=== PATIENT | male | born 1995 | race Caucasian/White ===

== ENCOUNTER 2020-05-02 17:15 | Emergency (ER) | payer OTHER, SELFPAY ==
--- NOTE | ~2020-05-02 | CT_ITS ---
EXAMINATION: CT brain wo con EXAM DATE: 05/02/2020 22:59 INDICATION: Pseudoseizure. TECHNIQUE: Spiral CT of the head was performed without contrast. Axial, coronal and sagittal images were reviewed. The dose-length product (DLP) for this examination was 681.00 mGy-cm. The exposure w as tailored according to patient size, and iterative reconstruction (ASIR) was used as additional dos e reduction technique. There is no prior study for comparison. FINDINGS: There is no acute intraparenchymal hemorrhage. No evidence of intraparenchymal brain mass lesion. No evidence of acute infarction. There is no mass effect or midline shift. The ventricles are normal in size. There are no extra-axial collections. There are no acute calvarial fractures. T he orbits are unremarkable. Soft tissue is unremarkable. The visualized sinuses and mastoid air thalia ls are well aerated. IMPRESSION: 1. Normal head CT examination. Reviewed, dictated and finalized at location A.
[2020-05-02 17:22] VITALS: BP 145/106; PULSE 116; RESP 18; TEMP 36.7; O2SAT 98
--- NOTE | 2020-05-02 19:56 | PC.NURSE ---
patient reports a hx of bipolar disorder with a previous hospitalization for a manic phases. patient reports that he stopped taking his medications because he doesnt like the the way they make him feel. presents to the er stating that he feels like he is going into a manic phase again. reports not sleeping well, increased energy level and not eating well. patient states he needs some help . denies SI or HI. patients thought process disorganized and difficult to follow
[2020-05-02 20:01] LABS: Basophils Absolute Auto 0.1 K/mm3 (0.0-0.1); Basophils Percent Auto 0.7 % (0.2-1.2); Eosinophils Percent Auto 0.5 % (0-4.4); Hematocrit 48.9 % (42.0-52.0); Hemoglobin 16.8 g/dL (14.0-18.0); Immature Granulocyte Absolute 0.01 K/mm3 (0.00-0.031); Immature Granulocyte Percent A 0.1 % (0-0.5); Lymphocytes Absolute Auto 1.85 K/mm3 (0.9-3.2); Lymphocytes Percent Auto 24.7 % (18.3-44.2); Mean Corpuscular HGB Conc 34.4 g/dl (32-36); Mean Corpuscular Hemoglobin 30.3 pg (26-34); Mean Corpuscular Volume 88.1 fl (80-100); Mean Platelet Volume 10.1 fl (7.4-10.4); Monocytes Absolute Auto 0.7 K/mm3 (0.1-0.6); Monocytes Percent Auto 8.8 % (2.6-8.5); Neutrophils Absolute Auto 4.9 K/mm3 (1.3-6.7); Neutrophils Percent Auto 65.2 % (45.5-73.1); Platelet Count Result 207 k/mm3 (150-375); Red Blood Count 5.55 M/mm3 (4.6-6.20); Red Cell Distribution Width 12.2 % (11.5-14.5); White Blood Count 7.5 K/mm3 (4.5-10.0)
--- NOTE | 2020-05-02 20:09 | ED.PSYCH ---
HPI - Psych General Chief Complaint: Psychiatric Symptoms <Mariela Hewitt MD - Last Filed: 05/04/20 12:27> Stated Complaint: psych eval? <Mariela Hewitt MD - Last Filed: 05/04/20 12:27> Time Seen by Provider: 05/02/20 19:58 <Mariela Hewitt MD - Last Filed: 05/04/20 12:27> History of Present Illness HPI Narrative: Patient presents to the ED for psychiatric care. He has difficulty answering questions, difficulty formulating his thoughts, and is very slow of speech. He starts by telling me that he was diagnosed bipolar. And that his thoughts are bothering him. He cannot describe the thoughts. He says he has suicidal ideation, but no plan. He has no homicidal ideation and does not want to hurt anybody. At first he says he wants outpatient care, and that he changes his mind and said he needs to be inpatient. He denies recent illness. He denies any surgeries. He finished 2 years of high school. He did not get his GED and has no college. 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 He lives with his parents. <Mariela Hewitt MD - Last Filed: 05/04/20 12:27> MD complaint: suicidal ideation and feels depressed <Mariela Hewitt MD - Last Filed: 05/04/20 12:27> Duration: constant <Mariela Hewitt MD - Last Filed: 05/04/20 12:27> Relieving factors: none <Mariela Hewitt MD - Last Filed: 05/04/20 12:27> Exacerbating factors: none <Mariela Hewitt MD - Last Filed: 05/04/20 12:27> Context: significant life stressor <Mariela Hewitt MD - Last Filed: 05/04/20 12:27> Associated psychiatric symptoms: depression, suicidal ideation and other (Troublesome thoughts) <Mariela Hewitt MD - Last Filed: 05/04/20 12:27> Associated symptoms: denies other symptoms <Mariela Hewitt MD - Last Filed: 05/04/20 12:27> If self harm: admits thoughts of self harm <Mariela Hewitt MD - Last Filed: 05/04/20 12:27> Related Data Home Medications: Home Medications Medication Instructions Recorded Confirmed No Home Medications 05/02/20 05/02/20 <Mariela Hewitt MD - Last Filed: 05/04/20 12:27> Allergies/Adverse Reactions: Allergies Allergy/AdvReac Type Severity Reaction Status Date / Time No Known Drug Allergies Allergy Unknown Unknown Verified 05/03/20 07:11 <Mariela Hewitt MD - Last Filed: 05/04/20 12:27> Review of Systems Review of Systems: Narrative: CONSTITUTIONAL: Denies fever, chills, or sweats. EYES: Denies visual changes, redness, or discharge. ENT: Denies rhinorrhea, congestion, sore throat, or otalgia. CARDIOVASCULAR: Denies chest pain, palpitations, or edema. RESPIRATORY: Denies cough or dyspnea. GASTROINTESTINAL: Denies abdominal pain, nausea, vomiting, or diarrhea. GENITOURINARY: Denies dysuria or hematuria. SKIN: Denies rash or itching. MUSCULOSKELETAL: Denies back pain, joint pain, or myalgia. NEUROLOGIC: Denies headache, numbness, or weakness. PSYCHIATRIC: History of bipolar. <Mariela Hewitt MD - Last Filed: 05/04/20 12:27> All systems reviewed & are unremarkable except as noted in HPI and below <Mariela Hewitt MD - Last Filed: 05/04/20 12:27> PMFSH Past Medical History Medical History: Medical History Depression School failure <Mariela Hewitt MD - Last Filed: 05/04/20 12:27> Surgical History Surgical History: Surgical History (Updated 05/02/20 @ 20:13 by Mariela Hewitt MD) No pertinent past surgical history <Mariela Hewitt MD - Last Filed: 05/04/20 12:27> Social History Social History: Social History (Updated 05/02/20 @ 20:13 by Mariela Hewitt MD) Smoking status: Former smoker Alcohol intake: former Substance use: never <Mariela Hewitt MD - Last Filed: 05/04/20 12:27> Exam Narrative: Exam Narrative: GENERAL: Well-appearing, well-nourished, and in no acute distress. HEAD: Normocephalic, atraumatic. EYES: PERRLA and EOMI. ENT: Nares clear, no rhinorrhea or epistaxis. Mucous membranes moist.
[2020-05-02 20:12] LABS: Ethanol < 10 mg/dL (<10)
[2020-05-02 20:13] LABS: Alanine Aminotransferase 18 U/L (4-50); Albumin Level 5.2 g/dL (3.5-5.1); Alkaline Phosphatase 85 U/L (38-126); Aspartate Amino Transferase 36 U/L (17-59); Bilirubin,Total 0.9 mg/dL (0.2-1.3); Blood Urea Nitrogen 8 mg/dL (9-20); Calcium 9.6 mg/dL (8.4-10.2); Carbon Dioxide 26 mmol/L (22-30); Chloride 99 mmol/L (98-107); Estimated CRCL calculation 127 ml/min; Estimated Glomerular Filt Rate > 60; Glucose 88 mg/dL (75-110); Sodium 137 mmol/L (137-145)
[2020-05-02 20:59] VITALS: BP 138/78; PULSE 87; RESP 20; O2SAT 99
[2020-05-02 21:07] LABS: Add Urine Microscopic? YES; Appearance Urine Clear (Clear); Bacteria Urine Trace /hpf; Bilirubin Urine Negative (Negative); Blood Urine Negative (Negative); Color Urine Yellow (Yellow); Glucose Urine UA Negative (Negative); Ketones Urine 1+ mg/dL (Negative); Leukocyte Esterase Ur Negative LEU/UL (Negative); Mucus Urine Heavy /lpf; Nitrate Urine Negative (Negative); Protein Urine 1+ mg/dL (Negative); RBC Urine 0-2 /hpf (0-2); Specific Grav Ur 1.024 (1.001-1.035); Squamous Epithelial Cell Urine Rare /hpf (Few); Urobilinogen Urine Negative mg/dL (<2.0); WBC Urine 0-3 /hpf
[2020-05-02 21:18] LABS: Amphetamine Screen Urine Negative (Negative); Barbiturate Screen Urine Negative (Negative); Benzodiazepines Screen Urine Negative (Negative); Cannabinoid Screen Urine Negative (Negative); Cocaine Screen Urine Negative (Negative); Methadone Screen Urine Negative (Negative); Opiate Screen Urine Negative (Negative); Phencyclidine Screen Urine Negative (Negative)
--- NOTE | 2020-05-02 21:26 | PC.NURSE ---
message left at [facility]
[2020-05-02 21:58] VITALS: BP 176/107; PULSE 115; RESP 20; O2SAT 99
--- NOTE | 2020-05-02 21:58 | PC.NURSE ---
Patient now has a sitter at bedside after having a Pseudoseizure that Dr. Hewitt witnessed.
--- NOTE | 2020-05-02 22:02 | PC.NURSE ---
patient found in bed having tonic/clonic like movements. erp call to bedside. no orders recieved. erp declines iv access attempt
--- NOTE | 2020-05-03 00:01 | PC.NURSE ---
pt mother called for an update. pt states it is ok to talk with her. told her we would call her back when we had more information.
--- NOTE | 2020-05-03 00:02 | PC.NURSE ---
mother Brandie [phone]
[2020-05-03 00:19] VITALS: BP 132/80; PULSE 79; RESP 20; TEMP 36.9; O2SAT 100
--- NOTE | 2020-05-03 00:41 | PC.NURSE ---
called mom to give her update, pt will be staying here until atleast tomorrow. per crisis there are no available beds.
--- NOTE | 2020-05-03 04:26 | PC.NURSE ---
pt continues to sleep on stretcher at this time. pt in NAD, RR even and unlabored. sitter remains at bedside.
[2020-05-03 05:55] VITALS: BP 147/101; PULSE 101; RESP 18; O2SAT 95
[2020-05-03] MEDS: HALOPERIDOL 1 MG TABLET PO (06:43)
--- NOTE | 2020-05-03 09:47 | PC.NURSE ---
CHART FAXED TO [facility].
--- NOTE | 2020-05-03 09:51 | PC.NURSE ---
CHART FAXED TO [facility] IN [place].
--- NOTE | 2020-05-03 10:32 | PC.NURSE ---
[facility] UNABLE TO ACCEPT PT AT THIS TIME DUE TO SELF PAY STATUS.
[2020-05-03 12:17] VITALS: BP 151/89; PULSE 86; RESP 20; O2SAT 99
[2020-05-03 14:25] LABS: SARS-CoV-2 RNA PCR Negative
[2020-05-03 15:00] VITALS: BP 138/88; PULSE 80; RESP 20; O2SAT 98
--- NOTE | 2020-05-03 20:26 | PC.NURSE ---
1600 pt denied by [facility] 1999 pt denied by [facility] [address] [facility] in [place]
[2020-05-03 22:56] VITALS: BP 142/90; PULSE 82; RESP 20; O2SAT 97
[2020-05-04 06:06] VITALS: BP 133/92; PULSE 70; RESP 16; TEMP 36.8; O2SAT 100
--- NOTE | 2020-05-04 06:21 | PC.NURSE ---
0555Luis Vick from [place], [place]- she is requesting a petition & certificate on this patient to be sent to her, even though this patient is voluntary. She states she needs this paperwork prior to looking at the rest of the patients information. I called Crisis, awaiting for a [employer] liqu[employer] sales representative to call back regarding this paperwork. Nava- [phone] [phone]
--- NOTE | 2020-05-04 08:00 | PC.NURSE ---
[facility]risis Returned Call: Will attempt to find placement at local facilities today prior to making patient sign any petition.
--- NOTE | 2020-05-04 10:05 | PC.NURSE ---
Crisis called, will be out for reevaluation of patient within the hour.
--- NOTE | 2020-05-04 10:47 | PC.NURSE ---
Faxed [facility] Petition for Involuntary Admission and Certificate. Crisis at bedside for petition signature.
[2020-05-04 11:00] VITALS: BP 168/110; PULSE 115; RESP 20; O2SAT 96
--- NOTE | 2020-05-04 11:59 | PC.NURSE ---
Spoke Fang at Crisis and faxed pts packet to [facility] in [place]
--- NOTE | 2020-05-04 14:23 | PC.NURSE ---
Spoke with intake at [facility] and she asked that we repeat lab work and fax it to them since it was last done on 05/02. notified.
[2020-05-04 14:54] LABS: Basophils Percent Auto 0.6 % (0.2-1.2); Eosinophils Percent Auto 0.3 % (0-4.4); Hematocrit 46.8 % (42.0-52.0); Hemoglobin 16.2 g/dL (14.0-18.0); Immature Granulocyte Absolute 0.03 K/mm3 (0.00-0.031); Immature Granulocyte Percent A 0.5 % (0-0.5); Lymphocytes Absolute Auto 1.37 K/mm3 (0.9-3.2); Lymphocytes Percent Auto 21.7 % (18.3-44.2); Mean Corpuscular HGB Conc 34.6 g/dl (32-36); Mean Corpuscular Hemoglobin 30.2 pg (26-34); Mean Corpuscular Volume 87.2 fl (80-100); Mean Platelet Volume 10.4 fl (7.4-10.4); Monocytes Absolute Auto 0.5 K/mm3 (0.1-0.6); Monocytes Percent Auto 8.4 % (2.6-8.5); Neutrophils Absolute Auto 4.3 K/mm3 (1.3-6.7); Neutrophils Percent Auto 68.5 % (45.5-73.1); Platelet Count Result 197 k/mm3 (150-375); Red Blood Count 5.37 M/mm3 (4.6-6.20); Red Cell Distribution Width 12.1 % (11.5-14.5); White Blood Count 6.3 K/mm3 (4.5-10.0)
[2020-05-04 15:01] LABS: Alanine Aminotransferase 14 U/L (4-50); Alkaline Phosphatase 70 U/L (38-126); Anion Gap 15.7 mmol/L (7-16); Aspartate Amino Transferase 27 U/L (17-59); Bilirubin,Total 1.2 mg/dL (0.2-1.3); Blood Urea Nitrogen 10 mg/dL (9-20); Calcium 9.4 mg/dL (8.4-10.2); Carbon Dioxide 28 mmol/L (22-30); Chloride 98 mmol/L (98-107); Estimated CRCL calculation 127 ml/min; Estimated Glomerular Filt Rate > 60; Glucose 87 mg/dL (75-110); Potassium 4.7 mmol/L (3.4-5.0); Sodium 137 mmol/L (137-145)
--- NOTE | 2020-05-04 17:08 | PC.NURSE ---
Spoke with Nato at [facility] and sent him pts updated labwork.
--- NOTE | 2020-05-04 17:47 | PC.NURSE ---
Spoke with Nato at [facility] and re-faxed pts involuntary petition. Nato states he will call back soon with placement confirmation.
[2020-05-04 18:00] VITALS: BP 141/88; PULSE 84; RESP 18; TEMP 37.1; O2SAT 100
--- NOTE | 2020-05-04 18:00 | PC.NURSE ---
Pt accepted to [facility]. Report called to ROSEANN Anglin. Dr Barnett is accepting physician.
[2020-05-04 18:03] VITALS: BP 141/88; PULSE 84; RESP 18; TEMP 37.1; O2SAT 100
--- NOTE | 2020-05-04 18:12 | PC.NURSE ---
[facility] accepted transfer to [facility] ETA 1929 Trip #[id number]
--- NOTE | 2020-05-04 21:19 | PC.NURSE ---
[facility] ETA 2230. Called [facility] to request transport. [facility] declined.
--- NOTE | 2020-05-04 21:26 | PC.NURSE ---
called [facility] Declined
--- NOTE | 2020-05-04 21:49 | PC.NURSE ---
Called [facility] to request transport. declined-no ALS truck for transfer.
--- NOTE | 2020-05-04 22:28 | PC.NURSE ---
Called [facility] for ETA update. Unit enroute. ETA [phone]
[2020-05-04 22:52] VITALS: BP 131/86; PULSE 75; RESP 16; TEMP 37.1; O2SAT 97
--- NOTE | 2020-05-04 23:01 | PC.NURSE ---
RN called and spoke with pts mother letting her know that pt [facility]
== END 2020-05-04 22:59 ==
PROVIDERS: Emergency Medicine; Emergency Provider Emergency Medicine
DX: F32.9 Major depressive disorder, single episode, unspecified (principal); G40.89 Other seizures; F29 Unspecified psychosis not due to a substance or known physiological condition; Z20.828 Contact with and (suspected) exposure to other viral communicable diseases
CPT/HCPCS: 36415; 70450; 80053; 80307; 81001; 84443; 85025; 87635; 96374; 99285; A9270; C9803; J2060; U0003